=== PATIENT | male | born 1995 | race Caucasian/White ===

== ENCOUNTER 2018-02-10 17:58 | Emergency (ER) | payer BC, OTHER ==
--- NOTE | 2018-02-10 19:31 | ER Document Report ---
ED Medical Screen (RME) - General Chief Complaint: Abdominal Pain Stated Complaint: TESTICULAR PAIN Time Seen by Provider: 02/10/18 19:18 TRAVEL OUTSIDE OF THE [place] 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 I have seen and evaluated this gentleman rapid medical screening fashion, he will require further evaluation and disposition by secondary provider. - Vital Signs Vital signs: Temp Pulse Resp BP Pulse Ox 98.9 F 70 18 150/67 H 99 02/10/18 18:02 02/10/18 18:02 02/10/18 18:02 02/10/18 18:02 02/10/18 18:02
[2018-02-10 19:49] LABS: AMORPHOUS SEDIMENT,URINE TRACE /HPF; APPEARANCE,URINE CLOUDY; BILIRUBIN,URINE NEGATIVE (NEGATIVE); COLOR,URINE YELLOW; GLUCOSE, URINE NEGATIVE (NEGATIVE); KETONES,URINE NEGATIVE (NEGATIVE); LEUKOCYTE ESTERASE,URINE NEGATIVE (NEGATIVE); NITRITE,URINE NEGATIVE (NEGATIVE); PROTEIN,URINE NEGATIVE (NEGATIVE); URINE SPECIFIC GRAVITY 1.018; UROBILINOGEN,URINE NEGATIVE mg/dL (<2.0)
--- NOTE | 2018-02-10 20:24 | ER Document Report ---
ED General - General Chief Complaint: Rectal Pain Stated Complaint: TESTICULAR PAIN Time Seen by Provider: 02/10/18 19:18 Notes: Patient is a 22-year-old male without chronic medical problems who presents with 3-4 days of bilateral testicular pain and pain below his anus. Describes it as a aching, constant, severe pain. Worsened by walking or moving. States that the pain started gradually and has been getting progressively worse since onset. Nothing improves the pain. No history of similar symptoms in the past. Has not seen his general physician regarding today's concerns. Was referred to the emergency department by urgent care. Denies any dysuria, urinary frequency, penile discharge or risk for sexually transmitted infection. TRAVEL OUTSIDE OF THE [place] IN LAST 30 DAYS: No - Related Data Allergies/Adverse Reactions: No Known Allergies Allergy (Unverified 02/10/18 18:03) Past Medical History - General Information source: Patient - Social History Smoking Status: Current Some Day Smoker Frequency of alcohol use: Occasional Drug Abuse: Marijuana Lives with: Spouse/Significant other Family History: Reviewed & Not Pertinent Patient has suicidal ideation: No Patient has homicidal ideation: No Renal/ Medical History: Denies: Hx Peritoneal Dialysis Past Surgical History: Reports: Hx Oral Surgery - metal aria in left wiley Review of Systems - Review of Systems Notes: Constitutional: Negative for fever. HENT: Negative for sore throat. Eyes: Negative for visual changes. Cardiovascular: Negative for chest pain. Respiratory: Negative for shortness of breath. Gastrointestinal: Negative for abdominal pain, vomiting or diarrhea. Genitourinary: Positive for testicular pain and rectal pain Musculoskeletal: Negative for back pain. Skin: Negative for rash. Neurological: Negative for headaches, weakness or numbness. 10 point ROS negative except as marked above and in HPI. Physical Exam - Vital signs Vitals: Temp Pulse Resp BP Pulse Ox 98.9 F 70 18 150/67 H 99 02/10/18 18:02 02/10/18 18:02 02/10/18 18:02 02/10/18 18:02 02/10/18 18:02 Interpretation: Hypertensive Notes: PHYSICAL EXAMINATION: GENERAL: Well-appearing, well-nourished and in no acute distress. HEAD: Atraumatic, normocephalic. EYES: Pupils equal round and reactive to light, extraocular movements intact, sclera anicteric, conjunctiva are normal. ENT: nares patent, oropharynx clear without exudates. Moist mucous membranes. NECK: Normal range of motion, supple without lymphadenopathy LUNGS: Breath sounds clear to auscultation bilaterally and equal. No wheezes rales or rhonchi. HEART: Regular rate and rhythm without murmurs ABDOMEN: Soft, nontender, normoactive bowel sounds. No guarding, no rebound. No masses appreciated. Rectal: Exquisite pain on palpation of the prostate : Positive cremasteric reflex bilaterally. No epididymal or testicular tenderness to palpation. Normal testicular lie. No inguinal canal defect. No hernia. EXTREMITIES: Normal range of motion, no pitting or edema. No cyanosis. NEUROLOGICAL: No focal neurological deficits. Moves all extremities spontaneously and on command. PSYCH: Normal mood, normal affect. SKIN: Warm, Dry, normal turgor, no rashes or lesions noted. Course - Re-evaluation Re-evalutation: 02/10/18 20:10 Patient presents with an exam and history that is most consistent with acute prostatitis. The patient did complain of throbbing, constant, pain between his testicles and rectum. His testicular exam is completely benign without any focal tenderness to the testicles, epididymis. Normal testicular lie. No evidence of an inguinal defect or hernia. On rectal examination the patient has exquisite tenderness on palpation of his prostate. Urinalysis is clear however. Culture pending. Patient is monogamous with his significant other, no risk for sexual transmitted infection by his report. Scrotal ultrasound pending and if this is otherwise unremarkable plan for discharge home with treatment for prostatitis using a 28-day course of trimethoprim sulfamethoxazole. Patient is not high risk for sexually transmitted infection as he is adamant that he is monogamous with his spouse. Gonorrhea and chlamydia is pending nonetheless. - Vital Signs Vital signs: Temp Pulse Resp BP Pulse Ox 98.7 F 59 L 16 107/84 97 02/10/18 22:11 02/10/18 22:11 02/10/18 22:11 02/10/18 22:11 02/10/18 22:11 - Laboratory Laboratory results interpreted by me: 02/10/18 19:30 Urine Ascorbic Acid 40 H Discharge - Discharge Clinical Impression: Acute bacterial prostatitis, Testicular pain Condition: Good Disposition: HOME, SELF-CARE Additional Instructions: You were seen today for pain your testicles and rectum. Your exam and history is most consistent with an acute prostatitis. You are being treated with a 28- day course of antibiotics. While I recognize that this is a long duration of treatment, you need to complete all antibiotics to prevent recurrence. You need to follow-up with your primary care physician within the next 1-2 days. Please take ibuprofen 600 mg every 6 hours for pain. Please return to the emergency department immediately if you develop fever, worsening of your pain, have difficulty urinating, have persistent vomiting, or have any other symptoms that are worrisome to you. Prescriptions: Sulfamethoxazole/Trimethoprim [Bactrim Ds Tablet] 1 tab PO BID #56 tablet
[2018-02-10] MEDS ORDERED: SULFAMETHOXAZOLE/TRIMETHOPRIM 800-160 MG TABLET PO ONE (20:25)
[2018-02-10] MEDS ORDERED: IBUPROFEN 600 MG TABLET PO ONE (20:25)
--- NOTE | 2018-02-10 21:43 | RADIOLOGY REPORT (SQ) ---
US SCROTUM HISTORY: Scrotal swelling. COMPARISON: None. TECHNIQUE: Walter-scale, color Doppler, and spectral Doppler ultrasound images of the scrotum were obtained. FINDINGS: RIGHT: Normal size and echogenicity of the testis, measuring 4.8 x 2.8 x 2.2 cm. Positive color Doppler flow is present. No focal intratesticular mass is seen. The epididymis also has normal size and echogenicity. LEFT: Normal size and echogenicity of the testis, measuring 4.8 x 3.2 x 2.4 cm. Positive color Doppler flow is present. No focal intratesticular mass is seen. The epididymis also has normal size and echogenicity and contains a 3 mm cyst. OTHER: Trace right hydrocele. Query mild left varicocele. No scrotal hernias. IMPRESSION: No evidence of testicular torsion or inflammation.
[2018-02-10 22:13] VITALS: BP 107/84
[2018-02-10 22:46] LABS: CHLAM PCR NOT DETECTED (NOT DETECT); GON PCR NOT DETECTED (NOT DETECT)
== END 2018-02-10 22:13 | disposition home or self-care (01) ==
LOC: ER 17:58
DX: N41.0 Acute prostatitis (principal); B96.89 Other specified bacterial agents as the cause of diseases classified elsewhere; N50.812 Left testicular pain; N50.811 Right testicular pain; F17.200 Nicotine dependence, unspecified, uncomplicated; F12.10 Cannabis abuse, uncomplicated
CPT/HCPCS: 36415; 76870; 81001; 87086; 87491; 87591; 93976; 99284

== ENCOUNTER 2018-06-14 20:13 | Emergency (ER) | payer BC, OTHER ==
[2018-06-14 20:19] VITALS: BP 147/75
== END 2018-06-14 22:00 | disposition left against medical advice (07) ==
LOC: ER 20:13
DX: Z53.21 Procedure and treatment not carried out due to patient leaving prior to being seen by health care provider (principal)